=== PATIENT | male | born 2000 | race African-American/Black ===

== ENCOUNTER 2020-10-08 11:49 | Emergency (ER) | payer MEDICAID, OTHER ==
[~2020-10-08] VITALS: Ht 175.3 cm; Wt 54.5 kg
--- NOTE | 2020-10-08 13:03 | NUR ---
OFFERED ICE PACK, DENIES
[2020-10-08 14:03] VITALS: BP 111/85
== END 2020-10-08 14:04 | disposition home or self-care (01) ==
LOC: ER 11:50
DX: S44.91XA Injury of unspecified nerve at shoulder and upper arm level, right arm, initial encounter (principal); M79.601 Pain in right arm; M25.511 Pain in right shoulder; Y93.67 Activity, basketball; Y92.89 Other specified places as the place of occurrence of the external cause; Y99.8 Other external cause status
CPT/HCPCS: 73090; 73110; 73130; 99284

== ENCOUNTER 2020-11-14 21:24 | Emergency (ER) | payer MEDICAID, OTHER ==
[~2020-11-14] VITALS: Ht 175.3 cm; Wt 55.0 kg
[2020-11-14 21:47] VITALS: BP 120/78
[2020-11-14] MEDS ORDERED: morphine 2 MG/ML inj. syringe IV PRN (22:40)
[2020-11-14] MEDS ORDERED: iohexol 300mg/ml 100ml inj. ONE (22:45)
[2020-11-14] MEDS ORDERED: TETanus/Pertussis (Acell)/Diphther VAC/PF (Tdap-Adult) 0.5ml syringe IMVAC ONE (23:05)
== END 2020-11-15 00:07 | disposition home or self-care (01) ==
LOC: ER 21:25
DX: S50.311A Abrasion of right elbow, initial encounter (principal); S40.211A Abrasion of right shoulder, initial encounter; R10.11 Right upper quadrant pain; Z20.3 Contact with and (suspected) exposure to rabies; Z72.89 Other problems related to lifestyle; W19.XXXA Unspecified fall, initial encounter; Y93.89 Activity, other specified; Y92.89 Other specified places as the place of occurrence of the external cause; Y99.8 Other external cause status
CPT/HCPCS: 74177; 90471; 90715; 96374; 99285; J2270; Q9967

== ENCOUNTER 2020-12-26 00:19 | Emergency (ER) | payer SELFPAY ==
[~2020-12-26] VITALS: Ht 175.3 cm; Wt 54.0 kg
[2020-12-26 00:55] LABS: BASOPHILS # (AUTO) 0.1 X10'3 (0-0.2); BASOPHILS % (AUTO) 0.7 % (0-1); EOSINOPHILS # (AUTO) 0.1 X10'3 (0-0.9); HEMATOCRIT 39.6 % (42.0-52.0); HEMOGLOBIN 13.5 g/dl (14.0-17.9); LYMPHOCYTES % (AUTO) 36.3 % (21-51); MEAN CORPUSCULAR HEMOGLOBIN 26.9 PG (27.0-31.0); MEAN CORPUSCULAR HGB CONC 34.1 g/dL (33.0-36.5); MEAN CORPUSCULAR VOLUME 78.9 FL (78-98); MEAN PLATELET VOLUME 7.5 FL (7.4-10.4); MONOCYTES # (AUTO) 0.6 X10'3 (0-0.9); MONOCYTES % (AUTO) 7.9 % (2-12); NEUTROPHILS # (AUTO) 4.4 X10'3 (1.8-7.7); NEUTROPHILS % (AUTO) 54.1 % (42-75); PLATELET COUNT 280 X10'3 (140-440); RED BLOOD COUNT 5.03 X10'6 (4.70-6.10); RED CELL DISTRIBUTION WIDTH 13.7 % (11.5-14.5); WHITE BLOOD COUNT 8.2 X10'3 (4.5-11.0)
[2020-12-26 01:15] LABS: ALANINE AMINOTRANSFERASE 21 U/L (12-78); ALBUMIN 4.2 G/DL (3.4-5.0); ALBUMIN/GLOBULIN RATIO 1.2 (1.1-1.5); ALKALINE PHOSPHATASE 102 IU/L (46-116); ASPARTATE AMINO TRANSFERASE 27 U/L (10-37); BILIRUBIN,TOTAL 0.8 MG/DL (0.1-1.0); BLOOD UREA NITROGEN 20 MG/DL (7-18); BUN/CREATININE RATIO 15.4 (5.4-32.0); CALCIUM 9.3 MG/DL (8.5-10.1); CHLORIDE 105 MMOL/L (99-107); GLUCOSE 88 MG/DL (70-104); POTASSIUM 3.5 MMOL/L (3.5-5.1); SODIUM 142 MMOL/L (135-145); TOTAL PROTEIN 7.8 G/DL (6.4-8.2); eGFR 84 ML/MIN
[2020-12-26 01:31] LABS: ANION GAP 12 (8-16); TOTAL CARBON DIOXIDE 25.5 MMOL/L (24-32)
[2020-12-26] MEDS ORDERED: ketorolac trometh. 30mg/ml inj. IM ONE (01:40)
[2020-12-26 02:32] VITALS: BP 128/88
== END 2020-12-26 02:33 | disposition home or self-care (01) ==
LOC: ER 00:20
DX: R07.9 Chest pain, unspecified (principal)
CPT/HCPCS: 36415; 71045; 80053; 84484; 85025; 93005; 96372; 99285; J1885

== ENCOUNTER 2021-02-16 22:48 | Emergency (ER) | payer OTHER ==
[~2021-02-16] VITALS: Ht 175.3 cm; Wt 54.0 kg
[2021-02-16 23:09] VITALS: BP 122/75
[2021-02-16] MEDS ORDERED: acetaminophen 325mg tablet PO ONE (23:15)
== END 2021-02-17 00:08 | disposition home or self-care (01) ==
LOC: ER 22:50
DX: B34.9 Viral infection, unspecified (principal); R07.89 Other chest pain; R05.9 Cough, unspecified; R50.9 Fever, unspecified; Z72.89 Other problems related to lifestyle
CPT/HCPCS: 93005; 99283

== ENCOUNTER 2021-06-18 17:14 | Emergency (ER) | payer SELFPAY ==
[~2021-06-18] VITALS: Ht 177.8 cm; Wt 53.9 kg
[2021-06-18 17:38] VITALS: BP 112/69
[2021-06-18] MEDS ORDERED: AMOX-117 PO (18:27)
== END 2021-06-18 18:37 | disposition home or self-care (01) ==
LOC: ER 17:14
DX: H72.92 Unspecified perforation of tympanic membrane, left ear (principal)
CPT/HCPCS: 99283

== ENCOUNTER 2022-12-28 09:01 | Inpatient (IN) | payer MEDICAID ==
[~2022-12-28] VITALS: Ht 175.3 cm; Wt 53.3 kg
[2022-12-28] MEDS ORDERED: ondansetron 4mg rapidly disintigrating tab PO ONE (09:40)
[2022-12-28 10:45] LABS: BASOPHILS % (AUTO) 0.2 % (0-1); EOSINOPHILS % (AUTO) 0 % (0-6); HEMATOCRIT 41.2 % (42.0-52.0); HEMOGLOBIN 13.3 g/dl (14.0-17.9); LYMPHOCYTES # (AUTO) 0.3 X10'3 (1.1-4.8); LYMPHOCYTES % (AUTO) 1.4 % (21-51); MEAN CORPUSCULAR HGB CONC 32.3 g/dL (33.0-36.5); MEAN CORPUSCULAR VOLUME 80.5 FL (78-98); MEAN PLATELET VOLUME 7.3 FL (7.4-10.4); MONOCYTES # (AUTO) 1.3 X10'3 (0-0.9); MONOCYTES % (AUTO) 6.3 % (2-12); NEUTROPHILS # (AUTO) 18.7 X10'3 (1.8-7.7); NEUTROPHILS % (AUTO) 92.1 % (42-75); PLATELET COUNT 282 X10'3 (140-440); RED BLOOD COUNT 5.13 X10'6 (4.70-6.10); RED CELL DISTRIBUTION WIDTH 13.8 % (11.5-14.5); WHITE BLOOD COUNT 20.3 X10'3 (4.5-11.0)
[2022-12-28 10:59] LABS: ALANINE AMINOTRANSFERASE 18 U/L (12-78); ALBUMIN 4.2 G/DL (3.4-5.0); ALBUMIN/GLOBULIN RATIO 1.2 (1.1-1.5); ALKALINE PHOSPHATASE 98 IU/L (46-116); ANION GAP 4 (8-16); ASPARTATE AMINO TRANSFERASE 24 U/L (10-37); BILIRUBIN,TOTAL 1.4 MG/DL (0.1-1.0); BLOOD UREA NITROGEN 17 MG/DL (7-18); CHLORIDE 102 MMOL/L (99-107); CREATININE 1.13 MG/DL (0.60-1.10); GLUCOSE 107 MG/DL (70-104); LIPASE 17 U/L (16-77); POTASSIUM 4.9 MMOL/L (3.5-5.1); SODIUM 135 MMOL/L (135-145); TOTAL CARBON DIOXIDE 29.2 MMOL/L (24-32); TOTAL PROTEIN 7.7 G/DL (6.4-8.2); eCRCL 77 ML/MIN; eGFR > 90 ML/MIN
[2022-12-28] MEDS ORDERED: ketorolac trometh. 30mg/ml inj. IV ONE (11:05)
[2022-12-28] MEDS ORDERED: normal saline 1000ML IV soln IV ONE (11:05)
[2022-12-28 11:06] LABS: ETHANOL < 10 MG/DL (<10)
[2022-12-28 11:23] LABS: BILIRUBIN,URINE NEGATIVE (Neg); CLARITY,URINE CLEAR (Clear); COLOR,URINE YELLOW (Yellow); GLUCOSE, URINE 100 mg/dl (Neg); KETONES,URINE 15 mg/dl (Neg); LEUKOCYTE ESTERASE ,URINE NEGATIVE (Neg); NITRITES, URINE NEGATIVE (Neg); OCCULT BLOOD,URINE NEGATIVE (Neg); PROTEIN,URINE TRACE mg/dl (Neg); UA COLLECTION TYPE CLN CATCH MIDSTREAM; UROBILINOGEN,URINE >=8.0 E.U/dL (0.2-1.0)
[2022-12-28 11:31] LABS: MUCUS STRANDS MODERATE /LPF (Neg)
[2022-12-28 11:34] LABS: BACTERIA,URINE FEW /HPF (Neg); SQUAMOUS EPITHELIAL CELL,UR FEW /LPF (FEW); URINE AMPHETAMINE SCREEN NEGATIVE (Neg); URINE BARBITUATE SCREEN NEGATIVE (Neg); URINE BENZODIAZEPINES SCREEN NEGATIVE (Neg); URINE CANNABINOID SCREEN NEGATIVE (Neg); URINE COCAINE SCREEN NEGATIVE (Neg); URINE METHADONE SCREEN NEGATIVE (Neg); URINE OPIATE SCREEN NEGATIVE (Neg); URINE PHENCYCLIDINE SCREEN NEGATIVE (Neg)
[2022-12-28 11:35] LABS: RENAL CELLS, URINE FEW /HPF; TRANSITIONAL EPI CELLS,URINE MODERATE /HPF; WBC,URINE 0-4 /HPF (0-4)
[2022-12-28] MEDS ORDERED: normal saline 1000ml 1,000 ML IV ONE ×2 (13:15→18:35)
[2022-12-28] MEDS ORDERED: acetaminophen 325mg tablet PO ONE (13:20)
[2022-12-28] MEDS ORDERED: CefTRIAXone 2gm/D5W 50ml BAG 50 ML IV ONE (14:15)
[2022-12-28] MEDS ORDERED: VANCOmycin 1250MG/NS 250ml Bag 250 ML IV ONE (14:30)
[2022-12-28] MEDS ORDERED: dexamethasone sod phosphate 10mg/ml inj IV STA (14:43)
--- NOTE | 2022-12-28 15:49 | NUR ---
LUMBAR PUNCTURE CONSENT SIGNED AND PROCDURE PERFORMED AND CERBRAL SPINAL FLUID COLLECTED AND SENT OFF TO LAB. PT TOLERATED THE PROCEDURE WELL AND HAS BEEN ORDERED TO LIE FLAT FOR 1 HOUR AFTER PROCEDURE.
[2022-12-28 16:34] LABS: APPEARANCE,CSF CLEAR; CSF SUPERNATANT COLOR COLORLESS; CSF VOLUME 9.5 ML
[2022-12-28 16:35] LABS: TUBE# COUNTED 3
[2022-12-28 16:36] LABS: CSF RBC 234 /CU MM (0)
[2022-12-28 16:37] LABS: CSF WBC CT 3 /CU MM (0-5)
[2022-12-28 16:38] LABS: GLUCOSE,CSF 69 MG/DL (40-75); TOTAL PROTEIN,CSF 51 MG/DL (15-45)
[2022-12-28] MEDS ORDERED: magnesium hydroxide 30ml (MOM) UD suspension PO PRN (17:25)
[2022-12-28] MEDS ORDERED: mag hydrox/Alum hydrox/simeth 30ml oral suspension PO PRN (17:25)
[2022-12-28] MEDS ORDERED: magnesium Cl slow-release 64mg tablet PO PRN (17:25)
[2022-12-28] MEDS ORDERED: potassium Cl 40MEQ/1/2NS 520ml 520 ML IV PRN (17:25)
[2022-12-28] MEDS ORDERED: magnesium 4gm in 100ml NS 100 ML IV PRN (17:25)
[2022-12-28] MEDS ORDERED: magnesium 2GM in 50ml NS 50 ML IV PRN (17:25)
[2022-12-28] MEDS ORDERED: ondansetron/PF 4mg/2ml inj IV PRN (17:25)
[2022-12-28] MEDS ORDERED: HYDROcodone/acetaminophen 5mg/325mg tablet PO PRN (17:25)
[2022-12-28] MEDS ORDERED: acetaminophen 325mg tablet PO PRN (17:25)
[2022-12-28] MEDS ORDERED: HYDROmorphone/PF 0.2 MG/ML SYRINGE IV PRN (17:25)
[2022-12-28] MEDS ORDERED: potassium Cl 20 mEq SR tablet PO PRN ×2 (17:25)
[2022-12-28 17:39] LABS: HIV ANTIBODY 1&2 RAPID NON-REACTIVE (Neg)
[2022-12-28] MEDS: normal saline 1000ml 1,000 ML IV SCH (18:08)
--- NOTE | 2022-12-28 18:09 | NUR ---
PT RESTING COMFORTABLY ON GURNEY. NS RUNNING AT 100ML/HR ORDERED. MED REC COMPLETED. PT DOES NOT TAKE ANY HOME MEDS.
[2022-12-28 19:21] LABS: PRO BRAIN NATRIURETIC PEPTIDE 42 PG/ML (0-125)
--- NOTE | 2022-12-28 19:42 | NUR ---
DINNER TRAY GIVEN TO PATIENT AT THIS TIME. PATIENT STATES THAT HE IS STARTING TO FEEL BETTER.
[2022-12-28] MEDS: K and/or MAG REPLACEMENT MC SCH (20:35)
[2022-12-28] MEDS: acetaminophen 1,000mg/100ml IV 100 ML IV SCH (21:00)
[2022-12-28] MEDS: heparin, porcine 5000 units/ml vial SQ SCH (21:04)
[2022-12-28] MEDS: docusate sod 100mg capsule PO SCH (21:05)
[2022-12-28] MEDS: piperacillin/tazo 4.5gm/100ml 100 ML IV SCH (22:03)
[2022-12-29] MEDS: normal saline 1000ml 1,000 ML IV SCH ×2 (01:01→09:08)
--- NOTE | 2022-12-29 02:35 | NUR ---
CALLED DR. MARTINEZ ABOUT TYLENOL 1000MG IV [id number]. PATIENT NOT REPORTING ANY PAIN OR DISCOMFORT OTHER THAN DISCOMFORT AT LP SITE. PER DR. JUAN MURPHY TO CONTINUE TO ADMINISTER TYLENOL 1000MG IV [id number]. Addendum: 12/29/22 at 0239 by BYRON PATIENT HAS ALSO BEEN AFEBRILE.
[2022-12-29] MEDS: acetaminophen 1,000mg/100ml IV 100 ML IV SCH ×2 (02:44→09:08)
[2022-12-29] MEDS ORDERED: vancomycin/NS 1 GM ADD-VANTAGE 250 ML IV SCH (03:00)
[2022-12-29 07:25] LABS: BASOPHILS % (AUTO) 0.1 % (0-1); EOSINOPHILS % (AUTO) 0 % (0-6); HEMATOCRIT 34.1 % (42.0-52.0); HEMOGLOBIN 11.1 g/dl (14.0-17.9); LYMPHOCYTES # (AUTO) 0.6 X10'3 (1.1-4.8); LYMPHOCYTES % (AUTO) 2.7 % (21-51); MEAN CORPUSCULAR HEMOGLOBIN 26.1 PG (27.0-31.0); MEAN CORPUSCULAR HGB CONC 32.5 g/dL (33.0-36.5); MEAN CORPUSCULAR VOLUME 80.3 FL (78-98); MEAN PLATELET VOLUME 7.4 FL (7.4-10.4); MONOCYTES # (AUTO) 1.4 X10'3 (0-0.9); MONOCYTES % (AUTO) 6.3 % (2-12); NEUTROPHILS # (AUTO) 19.8 X10'3 (1.8-7.7); NEUTROPHILS % (AUTO) 90.9 % (42-75); PLATELET COUNT 229 X10'3 (140-440); RED BLOOD COUNT 4.25 X10'6 (4.70-6.10); RED CELL DISTRIBUTION WIDTH 14.1 % (11.5-14.5); WHITE BLOOD COUNT 21.8 X10'3 (4.5-11.0)
--- NOTE | 2022-12-29 07:40 | NUR ---
Patient in room [facility]24. I have received report from GARRETT Castaneda and had the opportunity to ask questions and assume patient care.
[2022-12-29 07:45] VITALS: BP 106/53; PULSE 74; RESP 16; TEMP 97.8; O2SAT 100
[2022-12-29 07:55] LABS: ALANINE AMINOTRANSFERASE 15 U/L (12-78); ALBUMIN 2.9 G/DL (3.4-5.0); ALBUMIN/GLOBULIN RATIO 0.9 (1.1-1.5); ALKALINE PHOSPHATASE 78 IU/L (46-116); ANION GAP 5 (8-16); ASPARTATE AMINO TRANSFERASE 19 U/L (10-37); BILIRUBIN,TOTAL 0.6 MG/DL (0.1-1.0); BLOOD UREA NITROGEN 13 MG/DL (7-18); CALCIUM 7.9 MG/DL (8.5-10.1); CHLORIDE 107 MMOL/L (99-107); GLUCOSE 114 MG/DL (70-104); SODIUM 138 MMOL/L (135-145); TOTAL CARBON DIOXIDE 25.7 MMOL/L (24-32); TOTAL PROTEIN 6.1 G/DL (6.4-8.2); eCRCL 87 ML/MIN; eGFR > 90 ML/MIN
[2022-12-29] MEDS: K and/or MAG REPLACEMENT MC SCH (08:00)
[2022-12-29] MEDS: piperacillin/tazo 4.5gm/100ml 100 ML IV SCH (09:08)
[2022-12-29] MEDS: docusate sod 100mg capsule PO SCH (09:10)
[2022-12-29] MEDS: heparin, porcine 5000 units/ml vial SQ SCH (09:10)
[2022-12-29 10:00] VITALS: BP 104/62; PULSE 68; RESP 16; TEMP 98.2; O2SAT 97
--- NOTE | 2022-12-29 10:03 | NUR ---
Initial: Pt admit for sepsis, leukocytosis and MAGGIE. Noted pt with a low BMI of 17.4 using scaled wt of 53.3 kg. Pending malnutrition risk screen with RN however current wt is stable with scaled wt hx in EMR back to 10/08/20. Pt currently on a regular diet, pending documentation of PO intake. No documented BM since admit. Pt documented to have refused routine bowel care this morning. Additional PRN bowel care is available. Will continue to follow closely and make recommendations as appropriate. Recommendations: 1) Continue regular diet 2) Monitor need for ONS/additional protein 3) Routine bowel care 4) Weekly scaled weights Addendum: 12/29/22 at [address] Amended: Links added.
--- NOTE | 2022-12-29 14:30 | NUR ---
patient left AMA. IV was discontinued with cannula intact. Patient left in no distress and signed his paperwork for leaving AMA.
[2022-12-30] MEDS ORDERED: VANCOMYCIN LEVEL IV ONE (02:30)
[2023-01-02 12:45] LABS: CSF WEST NILE VIRUS, IGG Positive (Negative); CSF WEST NILE VIRUS, IGM Negative (Negative); VDRL, CSF Non Reactive (Non Rea:<1:1)
[2023-01-05 15:52] LABS: LYME IGG P18 AB Absent (.); LYME IGG P23 AB Absent (.); LYME IGG P28 AB Absent (.); LYME IGG P30 AB Absent (.); LYME IGG P39 AB Absent (.); LYME IGG P41 AB Absent (.); LYME IGG P45 AB Absent (.); LYME IGG P58 AB Absent (.); LYME IGG P66 AB Absent (.); LYME IGG P93 AB Absent (.); LYME IGG WB INTERP Negative (.); LYME IGM P23 AB Absent (.); LYME IGM P39 AB Absent (.); LYME IGM P41 AB Absent (.); LYME IGM WB INTERP Negative (.)
== END 2022-12-29 14:30 | disposition left against medical advice (07) | DRG 720 ==
LOC: ER 09:01 → ED HOLD 17:28 → ORTHO 4S 12-29 07:28
PROVIDERS: ADMIT Internal Medicine; ATTEND Internal Medicine
PROC: 009U3ZX Drainage of Spinal Canal, Percutaneous Approach, Diagnostic (ICD-10-PCS; principal; 2022-12-28)
DX: A41.9 Sepsis, unspecified organism (principal); N17.0 Acute kidney failure with tubular necrosis; M54.2 Cervicalgia; M54.9 Dorsalgia, unspecified; Z20.822 Contact with and (suspected) exposure to COVID-19; Z53.21 Procedure and treatment not carried out due to patient leaving prior to being seen by health care provider
CPT/HCPCS: 36415; 70450; 71045; 80053; 80305; 80320; 81001; 82945; 83605; 83690; 83880; 84145; 84157; 85025; 85651; 86592; 86617; 86703; 86788; 86789; 87015; 87040; 87070; 87502; 87503; 87811; 89051; 99285; A6449; G0378; J0131; J0696; J1100; J1644; J1885; J2543; J3370; J7030

== ENCOUNTER 2023-06-15 22:18 | Emergency (ER) | payer MEDICAID ==
[~2023-06-15] VITALS: Ht 175.3 cm; Wt 53.2 kg
[2023-06-15] MEDS: LIDOcaine 1% W/epiNEPHrine 1:100,000 20ml vial SQ ONE (22:56)
[2023-06-15] MEDS: TETanus/Pertussis (Acell)/Diphther VAC/PF (Tdap-Adult) 0.5ml syringe IMVAC ONE (23:00)
[2023-06-15] MEDS ORDERED: CEPH-585 PO (23:23)
[2023-06-15] MEDS ORDERED: HYDR-3965 PO (23:23)
[2023-06-15 23:44] VITALS: BP 132/87; PULSE 87; RESP 18; TEMP 98; O2SAT 98
== END 2023-06-15 23:47 | disposition home or self-care (01) ==
LOC: ER 22:19
DX: S80.212A Abrasion, left knee, initial encounter (principal); V29.888A Rider (driver) (passenger) of other motorcycle injured in other specified transport accidents, initial encounter; Y93.89 Activity, other specified; Y92.89 Other specified places as the place of occurrence of the external cause; Y99.8 Other external cause status
CPT/HCPCS: 73564; 90471; 90715; 99283

== ENCOUNTER 2024-05-14 22:58 | Emergency (ER) | payer SELFPAY ==
[~2024-05-14] VITALS: Ht 170.2 cm; Wt 54.5 kg
[2024-05-15] MEDS: acetaminophen 325mg tablet PO ONE (00:10)
[2024-05-15 00:27] LABS: STREP A SCREEN NEGATIVE (Neg)
[2024-05-15 01:02] VITALS: BP 121/88; PULSE 98; RESP 19; TEMP 97; O2SAT 100
== END 2024-05-15 01:07 | disposition home or self-care (01) ==
LOC: ER 22:59
DX: B34.9 Viral infection, unspecified (principal)
CPT/HCPCS: 73610; 87081; 87880; 99284